=== PATIENT | male | born 1955 | race African-American/Black ===

== ENCOUNTER 2018-01-07 10:55 | Emergency (ER) | payer MEDICARE, OTHER ==
[~2018-01-07] VITALS: Ht 175.3 cm; Wt 75.0 kg
[2018-01-07] MEDS ORDERED: TRAMADOL 50MG TABLET PO ONE (11:15)
[2018-01-07 14:06] VITALS: BP 174/103
== END 2018-01-07 14:09 | disposition home or self-care (01) ==
LOC: ER 10:55
DX: S00.83XA Contusion of other part of head, initial encounter (principal); I10 Essential (primary) hypertension; M54.6 Pain in thoracic spine; S16.1XXA Strain of muscle, fascia and tendon at neck level, initial encounter; V89.2XXA Person injured in unspecified motor-vehicle accident, traffic, initial encounter; Y93.89 Activity, other specified; Y92.89 Other specified places as the place of occurrence of the external cause; Y99.8 Other external cause status; Z86.73 Personal history of transient ischemic attack (TIA), and cerebral infarction without residual deficits; Z88.0 Allergy status to penicillin; Z88.2 Allergy status to sulfonamides
CPT/HCPCS: 70450; 72070; 72125; 99284